=== PATIENT | female | born 1995 | race American Indian/Alaskan Native ===

== ENCOUNTER 2018-07-01 13:20 | Emergency (ER) | payer SELFPAY ==
[2018-07-01 13:34] VITALS: BP 120/68
--- NOTE | 2018-07-01 16:42 | Emergency Department Report ---
HPI - General Chief Complaint: Sore Throat Time Seen by Provider: 07/01/18 16:25 - HPI HPI: 22-year-old female presents the emergency department with a 2 to three-week history of a sore throat. Patient says that she had strep throat about 2 months ago that she treated. She denies any fever, drooling or trismus. She has some pain inside the throat as well as outside towards the neck where she feels like she has some swollen "glands." She has not taken anything for her symptoms prior to presentation. She says that her son has some upper respiratory like symptoms at home. No recent trauma or sick contacts at home. She does not currently have a primary care physician. ED Past Medical Hx - Past Medical History Previous Medical History?: No - Surgical History Past Surgical History?: Yes Additional Surgical History: x 1 - Social History Smoking Status: Never Smoker Substance Use Type: None - Medications Home Medications: Home Medications Medication Instructions Recorded Confirmed Last Taken Type Fluticasone [Flonase] 1 spray NS QDAY #1 bottle 07/01/18 Unknown Rx Loratadine [Claritin] 10 mg PO DAILY #20 tablet 07/01/18 Unknown Rx ED Review of Systems ROS: Stated complaint: THROAT PAIN Other details as noted in HPI Comment: All other systems reviewed and negative Constitutional: denies: chills, fever Eyes: denies: eye pain, eye discharge, vision change ENT: throat pain. denies: ear pain Respiratory: denies: cough, shortness of breath, wheezing Cardiovascular: denies: chest pain, palpitations Gastrointestinal: denies: abdominal pain, nausea, diarrhea Genitourinary: denies: urgency, dysuria, discharge Musculoskeletal: denies: back pain, joint swelling, arthralgia Skin: denies: rash, lesions Neurological: denies: headache, weakness, paresthesias Physical Exam - Physical Exam Vital Signs: Vital Signs 07/01/18 13:31 Temperature 98.9 F Pulse Rate 78 Respiratory 18 Rate Blood Pressure 120/68 O2 Sat by Pulse 98 Oximetry Physical Exam: GENERAL: The patient is well-developed well-nourished. HENT: Normocephalic. Atraumatic. Patient has moist mucous membranes. There is some mild tonsillar hypertrophy but no significant erythema and no exudates. The posterior pharynx has some hypervascularity and signs of postnasal drip. No drooling or trismus. EYES: Extraocular motions are intact. Pupils equal reactive to light bilaterally. NECK: Supple. Trachea is midline. No significant lymphadenopathy. CHEST/LUNGS: Clear to auscultation. There is no respiratory distress noted. HEART/CARDIOVASCULAR: Regular. There is no tachycardia. There is no murmur. ABDOMEN: There is no abdominal distention. SKIN: Skin is warm and dry. NEURO: The patient is awake, alert, and oriented. The patient is cooperative. The patient has no focal neurologic deficits. The patient has normal speech and gait. MUSCULOSKELETAL: There is no tenderness or deformity. There is no evidence of acute injury. ED Course Vital Signs 07/01/18 13:31 Temperature 98.9 F Pulse Rate 78 Respiratory 18 Rate Blood Pressure 120/68 O2 Sat by Pulse 98 Oximetry ED Medical Decision Making - Medical Decision Making Patient has a 2 to three-week history of a sore throat and a previous history of strep throat about 2 months ago. She does not have any significant erythema or exudates of the tonsils with only some mild hypertrophy. She has a posterior pharynx that appears more consistent with postnasal drip. More likely to be a viral pharyngitis. Rapid strep test was negative. Vital signs stable including being afebrile. The patient will be treated with some symptomatic treatment and no antibiotics at this time. However she's been instructed to follow-up with a primary care physician and to return to the emergency Department with any worsening of her symptoms or any acute distress. - Differential Diagnosis strep pharyngitis, viral pharyngitis, postnasal drip, URI Critical Care Time: No Critical care attestation.: If time is entered above; I have spent that time in minutes in the direct care of this critically ill patient, excluding procedure time. ED Disposition Clinical Impression: Pharyngitis Qualifiers: Pharyngitis/tonsillitis etiology: unspecified etiology Qualified Code(s): J02.9 - Acute pharyngitis, unspecified Upper respiratory infection Qualifiers: URI type: unspecified URI Qualified Code(s): J06.9 - Acute upper respiratory infection, unspecified Disposition: - TO HOME OR SELFCARE Is pt being admited?: No Condition: Stable Instructions: Pharyngitis (ED) Additional Instructions: Please follow up with a primary care physician in the next few days. Return to the emergency Department with any worsening of your symptoms or any acute distress. Prescriptions: Fluticasone [Flonase] 1 spray NS QDAY #1 bottle Loratadine [Claritin] 10 mg PO DAILY #20 tablet Referrals: PRIMARY CARE, [Primary Care Provider] - 3-5 Days AYO KNIGHT MD [Staff Physician] - 3-5 Days [facility] [Outside] - 3-5 Days Time of Disposition: 17:12
== END 2018-07-01 17:19 | disposition home or self-care (01) ==
LOC: ED 13:20
DX: J02.9 Acute pharyngitis, unspecified (principal); J06.9 Acute upper respiratory infection, unspecified
CPT/HCPCS: 87116; 87430; 99283